=== PATIENT | female | born 1990 | race African-American/Black ===

== ENCOUNTER 2018-02-02 20:43 | Emergency (ER) | payer OTHER ==
[2018-02-02 20:49] VITALS: BP 117/64; PULSE 90; TEMP 98.1; BMI 22.1
[2018-02-02] MEDS ORDERED: KETOROLAC TROMETHAMINE 60 MG/2 ML VIAL ONE (21:15)
[2018-02-02] MEDS ORDERED: BUPIVACAINE HCL/PF 0.5% (5MG/ML) 10 ML VIAL ONE (21:17)
--- NOTE | 2018-02-02 21:32 | PDOC ---
History of Present Illness - General Chief Complaint: Toothache Stated Complaint: TOOTHACHE Time Seen by Provider: 02/02/18 21:01 History Source: Patient Exam Limitations: No Limitations - History of Present Illness Initial Comments: 02/02/18 21:33 has had problems with teeth for over a month however yesterday had a crack in her right lower first molar and has had exquisite pain today. Denies fever, swelling Severity: mild, moderate Past History - Travel Traveled outside of the country in the last 30 days: No Close contact w/someone who was outside of country & ill: No - Past Medical History Allergies/Adverse Reactions: Allergies Allergy/AdvReac Type Severity Reaction Status Date / Time No Known Allergies Allergy Verified 02/02/18 20:48 Home Medications: Ambulatory Orders No Home Medications 0 dose .ROUTE UTDICT 04/11/14 Amoxicillin - [Amoxicillin 500mg Capsule -] 500 mg PO TID #21 capsule 02/02/18 Asthma: No Cancer: No Cardiac Disorders: No COPD: No Diabetes: No HTN: No Seizures: No Thyroid Disease: No - Suicide/Smoking/Psychosocial Hx Smoking Status: No Smoking History: Never smoked Have you smoked in the past 12 months: No Number of Cigarettes Smoked Daily: 0 Information on smoking cessation initiated: No Hx Alcohol Use: No Drug/Substance Use Hx: Yes Substance Use Type: Marijuana Hx Substance Use Treatment: No *Physical Exam - Vital Signs Last Vital Signs Temp Pulse Resp BP Pulse Ox 98.1 F 90 18 117/64 100 02/02/18 20:46 02/02/18 20:46 02/02/18 20:46 02/02/18 20:46 02/02/18 20:46 - Physical Exam General Appearance: Yes: Nourished, Appropriately Dressed, Apparent Distress, Moderate Distress, Severe Distress HEENT: positive: TMs Normal, Pharynx Normal, Other (multiple areas of dental decay however right first molar cracked exposing nerve root to the posterior aspect of molar. Has no dental abscess, no gingival abscess, range of motion is intact at TMJ although is exquisite with any movement or air exposure) Neck: positive: Supple. negative: Tender, Lymphadenopathy (R), Lymphadenopathy (L) Respiratory/Chest: positive: Lungs Clear Gastrointestinal/Abdominal: positive: Soft. negative: Normal Bowel Sounds Musculoskeletal: positive: Normal Inspection Extremity: positive: Normal Capillary Refill, Normal Inspection Integumentary: positive: Normal Color, Warm, Pale Neurologic: positive: site acquisition specialist II-XII NML intact, Fully Oriented, Alert, Normal Mood/ Affect, Normal Response, Motor Strength 03/26 Medical Decision Making - Medical Decision Making 02/02/18 21:37 Bupivacaine 0.5% injected FOR BUCCAL block, WITH some ANESTHESIA Achieved. Toradol 60 mg IM and one Percocet tablet 02/02/18 21:39 *DC/Admit/Observation/Transfer Diagnosis at time of Disposition: Toothache - Discharge Dispostion Disposition: HOME Condition at time of disposition: Stable Admit: No - Prescriptions Prescriptions: Amoxicillin - [Amoxicillin 500mg Capsule -] 500 mg PO TID #21 capsule - Referrals Referrals: Yogesh Sampson MD [Primary Care Provider] - - Patient Instructions Printed Discharge Instructions: DI for Dental Pain Additional Instructions: Rest, drink lots of fluids: Teas, water, soups Saltwater gargles/ keep mouth clean and rinse after each meal May use wet teabag for pain relief to area Avoid hard chewing foods, stick to ice cream, Jell-O, yogurt etc. Tylenol or Motrin for fever and pain Complete all medication as prescribed Seek dental appointment as soon as possible for evaluation of dental injury/pain Followup with private physician in one to 2 days as needed Return to emergency department for worsened symptoms, fevers, swelling to face or worsened pain - Post Discharge Activity Forms/Work/School Notes: Back to Work
[2018-02-02] MEDS ORDERED: AMOXICILLIN 500 MG CAPSULE (FP) PO ONE (21:37)
[2018-02-02] MEDS ORDERED: AMOXICILLIN 250 MG CAPSULE ONE (21:40)
== END 2018-02-02 21:43 | disposition home or self-care (01) ==
LOC: JERFT 20:43
DX: K08.89 Other specified disorders of teeth and supporting structures (principal)
CPT/HCPCS: 99281-25

== ENCOUNTER 2018-10-31 07:14 | Emergency (ER) | payer OTHER ==
[2018-10-31 07:33] VITALS: BP 103/61; PULSE 81; TEMP 98.2; BMI 20.9
--- NOTE | 2018-10-31 07:35 | PDOC ---
History of Present Illness - History of Present Illness Initial Comments: 10/31/18 07:35 Ms. Villa is a 28 yo female w/ no pmh who presents for evaluation of abscess on her left upper chest/lower axilla. Patient reports she first had it about a week ago and was advised to put hot olive oil on it by her father. Patient denies this helping and would like to get checked out today. No other complaints at this time. The patient denies chest pain, shortness of breath, headache and dizziness. Denies fever, chills, nausea, vomit, diarrhea and constipation. Denies dysuria, frequency, urgency and hematuria. <Valentín Charlton - Last Filed: 10/31/18 09:07> <Richard Triplett - Last Filed: 10/31/18 09:30> - General Chief Complaint: Abscess Boil Stated Complaint: BUMP UNDER ARM Time Seen by Provider: 10/31/18 07:34 Past History - Past Medical History Asthma: No Cancer: No Cardiac Disorders: No COPD: No Diabetes: No HTN: No Seizures: No Thyroid Disease: No - Suicide/Smoking/Psychosocial Hx Smoking Status: No Smoking History: Current some day smoker Have you smoked in the past 12 months: No Number of Cigarettes Smoked Daily: 0 Information on smoking cessation initiated: No Hx Alcohol Use: No Drug/Substance Use Hx: No Substance Use Type: Marijuana Hx Substance Use Treatment: No <Valentín Charlton - Last Filed: 10/31/18 09:07> <Richard Triplett - Last Filed: 10/31/18 09:30> - Past Medical History Allergies/Adverse Reactions: Allergies Allergy/AdvReac Type Severity Reaction Status Date / Time No Known Allergies Allergy Verified 02/02/18 20:48 Home Medications: Ambulatory Orders No Home Medications 0 dose .ROUTE UTDICT 04/11/14 Review of Systems - Review of Systems Comments:: 10/31/18 07:35 GENERAL/CONSTITUTIONAL: No fever or chills. No weakness. HEAD, EYES, EARS, NOSE AND THROAT: No change in vision. No ear pain or discharge. No sore throat. CARDIOVASCULAR: No chest pain or shortness of breath RESPIRATORY: No cough, wheezing, or hemoptysis. GASTROINTESTINAL: No nausea, vomiting, diarrhea or constipation. GENITOURINARY: No dysuria, frequency, or change in urination. MUSCULOSKELETAL: No joint or muscle swelling or pain. No neck or back pain. SKIN: No rash NEUROLOGIC: No headache, vertigo, loss of consciousness, or change in strength/ sensation. ENDOCRINE: No increased thirst. No abnormal weight change HEMATOLOGIC/LYMPHATIC: No anemia, easy bleeding, or history of blood clots. ALLERGIC/IMMUNOLOGIC: No hives or skin allergy. <Valentín Charlton - Last Filed: 10/31/18 09:07> *Physical Exam - Vital Signs Last Vital Signs Temp Pulse Resp BP Pulse Ox 98.2 F 81 18 103/61 100 10/31/18 07:26 10/31/18 07:26 10/31/18 07:26 10/31/18 07:26 10/31/18 07:26 - Physical Exam Comments: 10/31/18 07:35 GENERAL: Awake, alert, and fully oriented, in no acute distress HEAD: No signs of trauma, normocephalic, atraumatic EYES: PERRLA, EOMI, sclera anicteric, conjunctiva clear ENT: Auricles normal inspection, hearing grossly normal, nares patent, oropharynx clear without exudates. Moist mucosa NECK: Normal ROM, supple, no lymphadenopathy, JVD, or masses LUNGS: No distress, speaks full sentences, clear to auscultation bilaterally HEART: Regular rate and rhythm, normal S1 and S2, no murmurs, rubs or gallops, peripheral pulses normal and equal bilaterally. ABDOMEN: Soft, nontender, normoactive bowel sounds. No guarding, no rebound. No masses EXTREMITIES: Normal inspection, Normal range of motion, no edema. No clubbing or cyanosis. NEUROLOGICAL: Cranial nerves II through XII grossly intact. Normal speech, normal gait, no focal sensorimotor deficits SKIN: +Left upper chest / lower axilla abscess approx. 2-3 cm in diameter. Fluctuant. <Valentín Charlton - Last Filed: 10/31/18 09:07> - Vital Signs Last Vital Signs Temp Pulse Resp BP Pulse Ox 98.2 F 81 18 103/61 100 10/31/18 07:26 10/31/18 07:26 10/31/18 07:26 10/31/18 07:26 10/31/18 07:26 <Richard Triplett - Last Filed: 10/31/18 09:30> Moderate Sedation - Procedure Monitoring Vital Signs: Procedure Monitoring Vital Signs Temperature 98.2 F 10/31/18 07:26 Pulse Rate 81 10/31/18 07:26 Respiratory Rate 18 10/31/18 07:26 Blood Pressure 103/61 10/31/18 07:26 O2 Sat by Pulse Oximetry (%) 100 10/31/18 07:26 <Valentín Charlton - Last Filed: 10/31/18 09:07> - Procedure Monitoring Vital Signs: Procedure Monitoring Vital Signs Temperature 98.2 F 10/31/18 07:26 Pulse Rate 81 10/31/18 07:26 Respiratory Rate 18 10/31/18 07:26 Blood Pressure 103/61 10/31/18 07:26 O2 Sat by Pulse Oximetry (%) 100 10/31/18 07:26 <Richard Triplett - Last Filed: 10/31/18 09:30> ED Treatment Course - Medications Given in the ED: ED Medications Discontinued Medications Generic Name Dose Route Start Last Admin Trade Name Iva PRN Reason Stop Dose Admin Lidocaine HCl 3 ml 10/31/18 08:45 10/31/18 08:47 Xylocaine 1% SQ 10/31/18 08:46 3 ml ONCE ONE Administration <Rcihard Triplett - Last Filed: 10/31/18 09:30> Medical Decision Making - Medical Decision Making 10/31/18 08:06 Ms. Villa is a 28 yo female w/ no pmh who presents for evaluation of abscess as described. No concerning findings at this time. Will I&D and likely discharge w / outpatient f/u. 10/31/18 09:07 Abscess I&D'ed with no complications. Will give patient plastics follow-up and PCP establishment. Patient also instructed note to place olive oil on skin any more. Discharging to home. <Valentín Charlton - Last Filed: 10/31/18 09:07> *DC/Admit/Observation/Transfer <Valentín Charlton - Last Filed: 10/31/18 09:07> <Richard Triplett - Last Filed: 10/31/18 09:30> Diagnosis at time of Disposition: Abscess - Discharge Dispostion Disposition: HOME Condition at time of disposition: Stable - Referrals Referrals: [facility] [Provider Group] Roberto Sampson MD [Primary Care Provider] - Gumaro Ventura MD [Staff Physician] - - Patient Instructions Printed Discharge Instructions: DI for Incision and Drainage of a Skin Abscess Additional Instructions: You were evaluated today in the Emergency Room for your Abscess. No concerning findings were found at this time. We drained your abscess without difficulty. Please follow up with surgery as well as primary care using attached information. Return to ER if any fever, chills, pain, or other concerning symptoms. - Post Discharge Activity Forms/Work/School Notes: Back to Work
[2018-10-31] MEDS ORDERED: LIDOCAINE HCL 1%, 10 MG/ML (50 mL VIAL) SQ ONE (08:45)
[2018-10-31] MEDS ORDERED: LIDOCAINE HCL 1%, 10 MG/ML (20ML VIAL) ONE (08:47)
--- NOTE | 2018-10-31 09:16 | PDOC ---
Attending Attestation - Resident Resident Name: Valentín Charlton - ED Attending Attestation I have performed the following: I have examined & evaluated the patient, The case was reviewed & discussed with the resident, I agree w/resident's findings & plan, Exceptions are as noted - HPI HPI: 10/31/18 09:13 28 F with no PMH presents to ED with boil to L armpit x 3 days. Denies F/C. Reports similar episode several years ago in R armpit that drained spontaneously and resolved. Endorses some pain, denies any active drainage. - Physicial Exam PE: 10/31/18 09:14 "GENERAL: Awake, alert, and fully oriented, in no acute distress. HEAD: No signs of trauma EYES: PERRLA, EOMI, sclera anicteric, conjunctiva clear ENT: Auricles normal inspection, hearing grossly normal, nares patent, oropharynx clear without exudates. Moist mucosa NECK: Nontender, no stepoffs, Normal ROM, supple, no lymphadenopathy, JVD, or masses LUNGS: Breath sounds equal, clear to auscultation bilaterally. No wheezes, and no crackles HEART: Regular rate and rhythm, normal S1 and S2, no murmurs, rubs or gallops ABDOMEN: Soft, nontender, normoactive bowel sounds. No guarding, no rebound. No masses EXTREMITIES: Normal range of motion, no edema. No clubbing or cyanosis. No cords, erythema, or tenderness NEUROLOGICAL: Cranial nerves II through XII intact. 5/5 strength and sensation in all extremities, Normal speech, normal gait, normal cerebellar function SKIN: + 1cm abscess with fluctuance in L axilla, no significant surrounding erythema, no active drainage - Medical Decision Making 10/31/18 09:15 28 F with small abscess to L axilla. No signs of systemic illness. Pt immunocompetent with stable vitals. - I&D performed with drainage of purulent fluid - F/u plastics Pt is well appearing, with normal vitals. Clinically stable for DC at this time. I discussed the physical exam findings, ancillary test results and final diagnoses with the patient. I answered all of the patient's questions. The patient was satisfied with the care received and felt comfortable with the discharge plan and treatment plan. The patient agrees to follow up with the primary care physician within 24-72 hours.
== END 2018-10-31 09:32 | disposition home or self-care (01) ==
LOC: JER 07:14
PROC: 0H9BXZZ Drainage of Right Upper Arm Skin, External Approach (ICD-10-PCS; principal; 2018-10-31)
DX: L02.213 Cutaneous abscess of chest wall (principal); F17.210 Nicotine dependence, cigarettes, uncomplicated
CPT/HCPCS: 10160; 99281-25

== ENCOUNTER 2018-12-29 10:09 | Emergency (ER) | payer OTHER ==
[2018-12-29 10:15] VITALS: BP 96/53; PULSE 70; TEMP 98; BMI 25.0
--- NOTE | 2018-12-29 11:15 | PDOC ---
History of Present Illness - General Chief Complaint: Injury Stated Complaint: SLIP AND FALL Time Seen by Provider: 12/29/18 11:14 History Source: Patient - History of Present Illness Initial Comments: 12/29/18 11:21 28-year-old female reports that she slipped and fell last night at work complaining of right knee pain and mid back pain. Patient denies hitting back or head. Denies pain to neck. Patient reports that she slipped she was trying to balance herself and has generalized body aches. Denies numbness or tingling to the lower extremity. No midline tenderness. Past History - Past Medical History Allergies/Adverse Reactions: Allergies Allergy/AdvReac Type Severity Reaction Status Date / Time No Known Allergies Allergy Verified 02/02/18 20:48 Home Medications: Ambulatory Orders No Home Medications 0 dose .ROUTE UTDICT 04/11/14 Asthma: No Cancer: No Cardiac Disorders: No COPD: No Diabetes: No HTN: No Seizures: No Thyroid Disease: No - Immunization History Immunization Up to Date: Yes - Suicide/Smoking/Psychosocial Hx Smoking Status: No Smoking History: Never smoked Have you smoked in the past 12 months: No Number of Cigarettes Smoked Daily: 0 Information on smoking cessation initiated: No Hx Alcohol Use: No Drug/Substance Use Hx: No Substance Use Type: Marijuana Hx Substance Use Treatment: No Trauma Specific PMHX - Complaint Specific PMHX Arthritis: No Back Injury: No Neck Injury: No Hx Sacro Iliac Joint Dysfunction: No Review of Systems - Review of Systems Able to Perform ROS?: Yes Is the patient limited Maori proficient: No Constitutional: No: Symptoms Reported, See HPI, Chills, Diaphoresis, Fever, Loss of Appetite, Malaise, Night Sweats, Weakness, Weight Stable, Unintentional Wgt. Loss, Unexplained wgt Loss, Other Musculoskeletal: Yes: Other (knee pain, back pain) *Physical Exam - Vital Signs Last Vital Signs Temp Pulse Resp BP Pulse Ox 98 F 70 16 96/53 L 100 12/29/18 10:12 12/29/18 10:12 12/29/18 10:12 12/29/18 10:12 12/29/18 10:12 - Physical Exam General Appearance: Yes: Appropriately Dressed Musculoskeletal: positive: Normal Inspection, Other (right lateral area tenderness on palpation, able to extent right knee. no deformity or swelling noted. full rom. + weight bearing). negative: CVA Tenderness (R), CVA Tenderness (L), Vertebral Tenderness Integumentary: positive: Normal Color, Dry, Warm Neurologic: positive: Fully Oriented, Alert, Normal Mood/Affect Moderate Sedation - Procedure Monitoring Vital Signs: Procedure Monitoring Vital Signs Temperature 98 F 12/29/18 10:12 Pulse Rate 70 12/29/18 10:12 Respiratory Rate 16 12/29/18 10:12 Blood Pressure 96/53 L 12/29/18 10:12 O2 Sat by Pulse Oximetry (%) 100 12/29/18 10:12 ED Treatment Course - ADDITIONAL ORDERS Additional order review: Laboratory Results 12/29/18 10:23 Urine HCG, Qual Negative Progress Note - Progress Note Progress Note: musculoskeletal pain; knee pain P: NSAIDs outpatient ortho follow up. patient reports chronic back pain. *DC/Admit/Observation/Transfer Diagnosis at time of Disposition: Musculoskeletal back pain Knee pain, right Qualifiers: Chronicity: acute Qualified Code(s): M25.561 - Pain in right knee - Discharge Dispostion Disposition: HOME - Referrals Referrals: Roberto Sampson MD [Primary Care Provider] - Viraj Brewster DO [Staff Physician] - Call tomorrow Richard Mcbride MD [Staff Physician] - Call tomorrow - Patient Instructions Printed Discharge Instructions: How to Prevent Falls Additional Instructions: you may take ibuprofen every 6 hours as needed for pain apply ice to the area, follow up with your doctor or an orthopedic doctor as soon as possible Additional Instructions: * Please call your personal physician to report your Emergency Department visit and to report your progress, if any. * If there is no improvement in symptoms in 2 days call your physician. * Return to the Emergency Department for any worsening symptoms. - Post Discharge Activity Forms/Work/School Notes: Back to Work
[2018-12-29] MEDS ORDERED: IBUPROFEN 400 MG TABLET (FP) PO ONE ×2 (11:24→11:28)
== END 2018-12-29 11:30 | disposition home or self-care (01) ==
LOC: JERFT 10:09
DX: M54.6 Pain in thoracic spine (principal); M25.561 Pain in right knee; W01.0XXA Fall on same level from slipping, tripping and stumbling without subsequent striking against object, initial encounter; Y93.89 Activity, other specified; Y92.214 College as the place of occurrence of the external cause; Y99.0 Civilian activity done for income or pay
CPT/HCPCS: 84703; 99281-25

== ENCOUNTER 2019-07-15 08:09 | Emergency (ER) | payer OTHER ==
[2019-07-15 08:20] VITALS: BP 106/55; PULSE 70; TEMP 98.3; BMI 20.9
[2019-07-15] MEDS ORDERED: LIDOCAINE 1%-EPI 1:100,000 30 ML MDV IJ ONE (08:29)
--- NOTE | 2019-07-15 08:35 | PDOC ---
History of Present Illness - General Chief Complaint: Abscess Boil Stated Complaint: LOWER BACK BOIL Time Seen by Provider: 07/15/19 08:27 History Source: Patient Exam Limitations: No Limitations - History of Present Illness Initial Comments: 07/15/19 08:28 Patient is here with complaints of abscess to midpoint back. States onset was a few days ago was progressively worsened Occurred: reports: just prior to arrival Pain Location: reports: back Method of Injury: Yes: unknown Modifying Factors: improves with: None Past History - Travel Traveled outside of the country in the last 30 days: No Close contact w/someone who was outside of country & ill: No - Past Medical History Allergies/Adverse Reactions: Allergies Allergy/AdvReac Type Severity Reaction Status Date / Time No Known Allergies Allergy Verified 07/15/19 08:16 Home Medications: Ambulatory Orders No Home Medications 0 dose .ROUTE UTDICT 04/11/14 Chlorhexidine Gluconate [Hibiclens For Decolonization -] 1 applic TP DAILY #1 bottle 07/15/19 Sulfamethoxazole/Trimethoprim [Bactrim *Ds*] 1 each PO BID #14 tablet 07/15/19 Asthma: No Cancer: No Cardiac Disorders: No COPD: No Diabetes: No HTN: No Seizures: No Thyroid Disease: No - Immunization History Immunization Up to Date: Yes - Suicide/Smoking/Psychosocial Hx Smoking Status: No Smoking History: Never smoked Have you smoked in the past 12 months: No Number of Cigarettes Smoked Daily: 0 Hx Alcohol Use: No Drug/Substance Use Hx: No Substance Use Type: Marijuana Hx Substance Use Treatment: No Trauma Specific PMHX - Complaint Specific PMHX Arthritis: No Back Injury: No Neck Injury: No Hx Sacro Iliac Joint Dysfunction: No Review of Systems - Review of Systems Able to Perform ROS?: Yes Is the patient limited Greek proficient: Yes Constitutional: Yes: Symptoms Reported, See HPI, Malaise. No: Fever HEENTM: No: Symptoms Reported Respiratory: No: Symptoms reported Musculoskeletal: No: Symptoms Reported Integumentary: Yes: Symptoms Reported, See HPI, Erythema, Lesions, Lumps Neurological: No: Symptoms reported All Other Systems: Reviewed and Negative *Physical Exam - Vital Signs Last Vital Signs Temp Pulse Resp BP Pulse Ox 98.3 F 70 18 106/55 L 100 07/15/19 08:14 07/15/19 08:14 07/15/19 08:14 07/15/19 08:14 07/15/19 08:14 - Physical Exam General Appearance: Yes: Nourished, Appropriately Dressed, Apparent Distress, Mild Distress HEENT: positive: TRU, Normal ENT Inspection, TMs Normal, Pharynx Normal Neck: positive: Supple. negative: Tender Integumentary: positive: Normal Color, Other (3 cm erythematous tender lesion midpoint back was pointing fluctuant head.) Neurologic: positive: can top setter II-XII NML intact, Fully Oriented, Alert, Normal Mood/ Affect, Normal Response, Motor Strength / Procedures - Incision and Drainage I&D Site: Bilateral: Other (midpoint back abscess) Betadine cleansed: Yes Anesthesia: 1% Lidocaine w/ Epi Blade Size: 11 Attempts: 1 Iodinated Packin/ in Complications: none Dressing: Yes Progress Note - Progress Note Progress Note: Abscess to midpoint back, culture sent and patient will be treated with Bactrim to cover MRSA, and Hibiclens scrub righted for decolinization after abscess healed *DC/Admit/Observation/Transfer Diagnosis at time of Disposition: Abscess, Abscess of back - Discharge Dispostion Disposition: HOME Condition at time of disposition: Stable Decision to Admit order: No - Prescriptions Prescriptions: Chlorhexidine Gluconate [Hibiclens For Decolonization -] 1 applic TP DAILY #1 bottle Sulfamethoxazole/Trimethoprim [Bactrim *Ds*] 1 each PO BID #14 tablet - Referrals Referrals: Roberto Sampson MD [Primary Care Provider] - - Patient Instructions Printed Discharge Instructions: DI for Incision and Drainage of a Skin Abscess Additional Instructions: Rest, keep area elevated. Avoid strenuous activity or exercise until wound is healed Use hot soaks to area to bring more blood to the surface and encourage drainage May change dressings as needed to keep clean - trying to avoid removal of packing for 2 days. If packing needs to be changed, return to emergency department or with your followup physician for wound care and evaluation and repacking as needed If packing needs to be removed, then in 2 days, while in the shower remove dressing and quickly pull the packing taken out. Allow water from shower to wash area thoroughly for 2-3 minutes, and pat dry upon exit of shower and replace dressing. Change his dressing daily until the wound is completely healed. May use Tylenol or Motrin for mild pain relief Use stronger medications as directed and prescribed Continue all medications as prescribed Followup with private physician in 2-3 days for wound check Return to emergency Department for worsening swelling, pain, redness, fevers as needed Mefoxin resistant Staphylococcus aureus is a normal skin bacteria and is mutated to be resistant to penicillin type drugs. The wounds may be draining and there for contagious to other family members. Vigorous handwashing and avoidance of skin contact of draining lesions it is important . All family members Will need to be protected and perform thorough cleaning of linens /towels/clothing. To decontaminate household: Soak in bath; in one half cup of bleach in 1 full tub of water 2 times a week x3 weeks With own scrub Nylon use chlorohexidine soap twice a week to decontaminate skin Clean tub /toilet with bleach wipes after each use Do not use same linens/avoid contact until lesions are healed Followup with private physician/professional golf tournament player Take all of Bactrim as directed May use ibuprofen or Tylenol for pain relief Followup with PMD in one week if no resolution Make appointment with professional golf tournament player for evaluation when possible - Post Discharge Activity
== END 2019-07-15 08:57 | disposition home or self-care (01) ==
LOC: JERFT 08:09
PROC: 0J970ZZ Drainage of Back Subcutaneous Tissue and Fascia, Open Approach (ICD-10-PCS; principal; 2019-07-15)
DX: L02.212 Cutaneous abscess of back [any part, except buttock and flank] (principal)
CPT/HCPCS: 10060; 87070; 87186; 87205; 99283-25

== ENCOUNTER 2021-09-03 10:59 | Emergency (ER) | payer OTHER ==
[2021-09-03 11:25] VITALS: BP 102/52; PULSE 76; TEMP 97.9; BMI 20.2
== END 2021-09-03 12:40 | disposition home or self-care (01) ==
LOC: JERFT 10:59
DX: S69.92XA Unspecified injury of left wrist, hand and finger(s), initial encounter (principal); W22.8XXA Striking against or struck by other objects, initial encounter; Y92.89 Other specified places as the place of occurrence of the external cause
CPT/HCPCS: 73110-TC-LT-FY; 73130-TC-LT-FY; 99283-25

== ENCOUNTER 2022-02-15 12:35 | Emergency (ER) | payer OTHER ==
[2022-02-15 12:45] VITALS: BP 122/72; PULSE 71; TEMP 97.5; BMI 20.2
[2022-02-15] MEDS ORDERED: SODIUM CHLORIDE 1,000 ML IV STA (13:25)
[2022-02-15] MEDS ORDERED: ONDANSETRON 4 MG/2 ML VIAL IVPUSH ONE (13:25)
[2022-02-15] MEDS ORDERED: ONDANSETRON 4 MG/2 ML VIAL ONE (14:06)
[2022-02-15 14:46] LABS: BASO % 0.3 % (0-2.0); EOS % 0.5 % (0-4.5); HEMATOCRIT 38.5 % (32.4-45.2); HEMOGLOBIN 12.8 GM/dL (10.7-15.3); MCH 33.3 pg (25.7-33.7); MCHC 33.3 g/dl (32.0-36.0); MEAN CELL VOLUME 99.9 fl (80-96); MEAN PLT VOLUME 10.8 fl (7.5-11.1); MONO % 8.3 % (3.8-10.2); NEUT % 56.9 % (42.8-82.8); PLATELET COUNT 105 10^3/uL (134-434); RBC 3.86 M/mm3 (3.60-5.2); RDW 12.9 % (11.6-15.6); WHITE BLOOD COUNT 4.1 K/mm3 (4.0-10.0)
[2022-02-15 14:51] LABS: HCG,QUALITATIVE URINE Negative
[2022-02-15 15:04] LABS: EPI CELLS >36 /uL (0-25.1); HYALINE CASTS 12 /uL (0-3.1); PH,URINE 5.5 (5.0-8.0); URINE APPEARANCE CLOUDY; URINE BACTERIA 193 /uL (0-1359); URINE BILIRUBIN NEGATIVE (NEGATIVE); URINE COLOR YELLOW; URINE GLUCOSE (UA) NEGATIVE (NEGATIVE); URINE KETONE TRACE (NEGATIVE); URINE LEUK ESTERASE 2+ (NEGATIVE); URINE NITRITE NEGATIVE (NEGATIVE); URINE PROTEIN TRACE (NEGATIVE); URINE RBC 27 /uL (0-23.9); URINE UROBILINOGEN 0.2 mg/dL (0.2-1.0); URINE WBC 320 /uL (0-25.8)
[2022-02-15 15:14] LABS: CALCIUM 9.1 mg/dL (8.5-10.1)
[2022-02-15 15:15] LABS: BLOOD UREA NITROGEN 9.2 mg/dL (7-18)
[2022-02-15 15:18] LABS: CREATININE 0.8 mg/dL (0.55-1.3)
[2022-02-15 15:19] LABS: BILIRUBIN,TOTAL 0.3 mg/dL (0.2-1); TOT PROT 7.6 g/dl (6.4-8.2)
== END 2022-02-15 16:18 | disposition home or self-care (01) ==
LOC: JER 12:35
PROC: 3E033GC Introduction of Other Therapeutic Substance into Peripheral Vein, Percutaneous Approach (ICD-10-PCS; principal; 2022-02-15)
DX: N30.90 Cystitis, unspecified without hematuria (principal)
CPT/HCPCS: 36415; 80053; 81003; 83690; 84703; 85025; 87086; 87186; 87804; 99284-25

== ENCOUNTER 2022-09-22 10:54 | Emergency (ER) | payer OTHER ==
[2022-09-22 11:00] VITALS: BP 101/65; PULSE 85; RESP 18; TEMP 98.3; BMI 20.8
== END 2022-09-22 12:46 | disposition home or self-care (01) ==
LOC: JERFT 10:54
DX: M25.561 Pain in right knee (principal)
CPT/HCPCS: 72100-TC-FY; 73562-TC-RT-FY; 99284-25

== ENCOUNTER 2023-08-31 12:03 | Emergency (ER) | payer OTHER ==
[2023-08-31 12:08] VITALS: RESP 20; BMI 21.7
[2023-08-31] MEDS ORDERED: ACETAMINOPHEN 500 MG TABLET (FP) PO ONE (12:24)
[2023-08-31] MEDS ORDERED: SODIUM CHLORIDE 0.9% 500 ML INFUS.BAG IV ONE (12:24)
[2023-08-31] MEDS ORDERED: METOCLOPRAMIDE HCL INJECTION 10 MG/2 ML VIAL IVPUSH ONE (12:24)
[2023-08-31] MEDS ORDERED: METOCLOPRAMIDE HCL INJECTION 10 MG/2 ML VIAL ONE (12:37)
[2023-08-31] MEDS ORDERED: ACETAMINOPHEN 325 MG TABLET (FP) ONE (12:37)
[2023-08-31 13:04] LABS: BASO % 0.3 % (0-2.0); EOS % 2.5 % (0-4.5); HEMATOCRIT 37.7 % (32.4-45.2); HEMOGLOBIN 12.2 GM/dL (10.7-15.3); LYMPH % 47.5 % (8-40); MCH 32.2 pg (25.7-33.7); MCHC 32.2 g/dl (32.0-36.0); MEAN PLT VOLUME 10.9 fl (7.5-11.1); MONO % 5.1 % (3.8-10.2); NEUT % 44.6 % (42.8-82.8); PLATELET COUNT 130 10^3/uL (134-434); RBC 3.77 M/mm3 (3.60-5.2); RDW 12.6 % (11.6-15.6); WHITE BLOOD COUNT 5.9 K/mm3 (4.0-10.0)
[2023-08-31 13:05] LABS: URINE APPEARANCE CLEAR; URINE BILIRUBIN NEGATIVE (NEGATIVE); URINE COLOR YELLOW; URINE GLUCOSE (UA) NEGATIVE (NEGATIVE); URINE KETONE NEGATIVE (NEGATIVE); URINE LEUK ESTERASE NEGATIVE (NEGATIVE); URINE NITRITE NEGATIVE (NEGATIVE); URINE PROTEIN NEGATIVE (NEGATIVE); URINE UROBILINOGEN 0.2 mg/dL (0.2-1.0)
[2023-08-31 13:13] LABS: POTASSIUM 4.1 mmol/L (3.5-5.1)
[2023-08-31 13:15] LABS: ALBUMIN 3.8 g/dl (3.4-5.0); BLOOD UREA NITROGEN 7.4 mg/dL (7-18); CALCIUM 8.6 mg/dL (8.5-10.1); MAGNESIUM 1.9 mg/dL (1.8-2.4)
[2023-08-31 13:18] LABS: CREATININE 0.9 mg/dL (0.55-1.3)
[2023-08-31 13:20] LABS: BILIRUBIN,TOTAL 0.3 mg/dL (0.2-1); TOT PROT 7.1 g/dl (6.4-8.2)
[2023-08-31 13:22] LABS: HCG,QUALITATIVE URINE Negative
[2023-08-31 14:59] VITALS: BP 106/67; PULSE 57; TEMP 98.1
== END 2023-08-31 15:05 | disposition home or self-care (01) ==
LOC: JER 12:03
PROC: 3E033GC Introduction of Other Therapeutic Substance into Peripheral Vein, Percutaneous Approach (ICD-10-PCS; principal; 2023-08-31)
DX: R42 Dizziness and giddiness (principal); R51.9 Headache, unspecified; H53.71 Glare sensitivity; H53.8 Other visual disturbances; G43.909 Migraine, unspecified, not intractable, without status migrainosus; Z20.822 Contact with and (suspected) exposure to COVID-19
CPT/HCPCS: 0241U-QW; 36415; 70450-TC; 80053; 81003; 83735; 84703; 85025; 87086; 93005; 93010; 99285-25

== ENCOUNTER 2023-10-19 09:40 | Emergency (ER) | payer OTHER ==
[2023-10-19 09:58] VITALS: BP 102/61; PULSE 71; RESP 20; TEMP 98.6; BMI 20.8
[2023-10-19] MEDS ORDERED: ACETAMINOPHEN 325 MG TABLET (FP) PO ONE (11:47)
[2023-10-19] MEDS ORDERED: ACETAMINOPHEN 325 MG TABLET (FP) ONE (12:21)
== END 2023-10-19 12:35 | disposition home or self-care (01) ==
LOC: JERFT 09:40
DX: R05.9 Cough, unspecified (principal); J02.9 Acute pharyngitis, unspecified; J98.8 Other specified respiratory disorders; B97.89 Other viral agents as the cause of diseases classified elsewhere; R09.3 Abnormal sputum; R09.81 Nasal congestion
CPT/HCPCS: 99283-25